=== PATIENT | female | born 1970 | race African-American/Black ===

== ENCOUNTER 2017-01-13 22:57 | Emergency (ER) | payer BC ==
[~2017-01-13] VITALS: Ht 172.7 cm; Wt 116.1 kg
[2017-01-14 01:17] VITALS: BP 143/81
== END 2017-01-14 01:17 | disposition home or self-care (01) ==
LOC: ED 22:57
DX: S39.012A Strain of muscle, fascia and tendon of lower back, initial encounter (principal); M54.41 Lumbago with sciatica, right side; X58.XXXA Exposure to other specified factors, initial encounter; Y93.89 Activity, other specified; Y99.8 Other external cause status; Y92.89 Other specified places as the place of occurrence of the external cause
CPT/HCPCS: J1885